=== PATIENT | male | born 1980 | race Caucasian/White ===

== ENCOUNTER 2018-04-23 16:19 | Emergency (ER) | payer BC, SELFPAY ==
[2018-04-23 16:25] VITALS: BP 141/77; PULSE 73; RESP 20; O2SAT 98; BMI 30.8
--- NOTE | 2018-04-23 16:37 | ED.WOUNDLAC ---
HPI - Wound/Laceration General Chief Complaint: Wound/Laceration Stated Complaint: cut rt leg Time Seen by Provider: 04/23/18 16:37 Source: patient Mode of arrival: ambulatory Limitations: no limitations History of Present Illness HPI narrative: patient here for evaluation of a laceration to his right linn. He states that occurred approximately 10 days ago. He states he has cleaned out. He does not know when his last tetanus shot was he came in to see whether not it needed stitches Related Data Home Medications Medication Instructions Recorded Confirmed No Known Home Medications 04/23/18 04/23/18 Allergies Allergy/AdvReac Type Severity Reaction Status Date / Time No Known Drug Allergies Allergy Verified 04/23/18 16:42 Review of Systems Constitutional Denies fever(s) Musculoskeletal Denies myalgias and Denies arthralgias Integumentary/Breasts Comments: cut to right linn Neurologic Comments: no numbness and tingling right lower extremity Hematologic/Lymphatic Denies easy bleeding and Denies easy bruising PFSH Social History Smoking Status: Current some day smoker Exam Initial Vital Signs Initial Vital Signs: Vital Signs Pulse Rate 73 04/23/18 16:25 Respiratory Rate 20 04/23/18 16:25 Blood Pressure 141/77 H 04/23/18 16:25 Pulse Oximetry 98 04/23/18 16:25 Resp Effort & Inspection: normal respiratory effort and able to speak in complete sentences Skin Other: patient with a 5 cm linear laceration to his right anterior linn with a very small amount of surrounding erythema. No drainage. Neuro Other: sensation intact to light touch right lower extremity Extrem Other: Right knee and right ankle unremarkable Course Vital Signs - 8 hr 04/23/18 16:25 Pulse Rate 73 Respiratory Rate 20 Blood Pressure 141/77 H Pulse Oximetry 98 MDM - Wound/Laceration MDM Narrative Medical decision making narrative: patient is 10 days out from laceration to his right linn. Physical exam today is not consistent with any signs of cellulitis. The small amount of erythema is consistent with the healing ridge around the laceration. No indication for sutures seeing as how the cut happened 10 days ago. Patient does not know when his last tetanus shot was however he did not want a tetanus shot because he did not know what was in it and was concerned if it is good for my body we did discuss his risks of tetanus. I feel that risks are low however I did inform him that any time he break the skin you are at risk for tetanus and that this could be deadly infection. He expressed understanding and still did not want a tetanus shot. He was given care instructions. He was given return precautions. He expressed understanding and agreement with plan Discharge Plan Departure Patient Disposition: Home, Self-Care Clinical Impression: Laceration Instructions: DI for Abrasion Activity Restrictions/Additional Instructions: keep the area clean. You can shower like normal. Soap and water to clean the area. You can covered with a bandage to keep dirt out of the area. The area will have a scar. Return to the emergency department for any new or worsening symptoms Prescriptions: No Action No Known Home Medications RF: 0
--- NOTE | 2018-04-23 16:43 | PC.NURSE ---
right side of leg injury 10 days ago, pt obtained superficial laceration/abrasion, pt requesting suture. tetanus not up to date, t dap publishing sheet given. pt ambulate without difficulty.
--- NOTE | 2018-04-23 16:49 | PC.NURSE ---
pt deferred tdap.
--- NOTE | 2018-04-23 17:15 | PC.NURSE ---
site cleaned with hibiclens, saline, dried, bandaid applied, tolerated well.
== END 2018-04-23 17:16 | disposition home or self-care (01) ==
PROVIDERS: Emergency Provider Emergency Medicine
DX: S81.811A Laceration without foreign body, right lower leg, initial encounter (principal); W26.8XXA Contact with other sharp object(s), not elsewhere classified, initial encounter
CPT/HCPCS: 99282; 99283